=== PATIENT | male | born 1965 | race Caucasian/White ===

== ENCOUNTER 2023-11-19 09:18 | Outpatient (CLI) | payer OTHER | END 2023-11-19 09:19 | disposition home or self-care (01) | LOC: CSHRAD 09:18 | PROVIDERS: ATTEND Surgery | DX: S12.9XXA Fracture of neck, unspecified, initial encounter (principal); S22.008A Other fracture of unspecified thoracic vertebra, initial encounter for closed fracture; M47.812 Spondylosis without myelopathy or radiculopathy, cervical region; S22.029D Unspecified fracture of second thoracic vertebra, subsequent encounter for fracture with routine healing; Z98.890 Other specified postprocedural states; S22.079D Unspecified fracture of T9-T10 vertebra, subsequent encounter for fracture with routine healing | CPT/HCPCS: 72040; 72070 ==